=== PATIENT | male | born 1950 | race Hispanic/Latino ===

== ENCOUNTER 2018-05-02 16:11 | Inpatient (IN) | payer MEDICARE, BC ==
--- NOTE | 2018-05-02 17:14 | ED PDOC ---
Arrival/HPI - General Chief Complaint: High Blood Sugar Time Seen by Provider: 05/02/18 16:57 Historian: Patient - History of Present Illness Narrative History of Present Illness (Text): 05/02/18 16:59 67 y/o male, pmh including htn/hld/recently diagnosed dm, rt. below knee amputation form previous orthopedic surgery complication, nkda, c/o feeling fatigue/urinary frequency/thirsty/poor wound healing/dizziness for the past 2-3 weeks. Pt. stated that he saw Dr. Renner about couple days ago, started on the Xultophy about 2 days ago, told to check the fasting blood sugar at home, checked it around 12pm this afternoon before lunch and noted to be around 500s, had lunch around 1pm and currently around 300s, no night sweat, no visual changes, no change in vision, no numbness or tingling, no palpitation, no other medical or psychological complaints. Pt. stated that he had dizziness with fatigue but resolved today. Past Medical History - Provider Review Nursing Documentation Reviewed: Yes - Infectious Disease Hx of Infectious Diseases: None - Tetanus Immunization Tetanus Immunization: Up to Date - Cardiac Hx Cardiac Disorders: Yes Hx TN: Yes Hx Hypertension: Yes - Pulmonary Hx Respiratory Disorders: No - Neurological Hx Neurological Disorder: No - HEENT Hx HEENT Disorder: Yes Other/Comment: wears glasses - Renal Hx Renal Disorder: No - Endocrine/Metabolic Hx Endocrine Disorders: No - Hematological/Oncological Hx Blood Disorders: No Hx Blood Transfusions: No - Integumentary Hx Dermatological Disorder: No - Musculoskeletal/Rheumatological Hx Musculoskeletal Disorders: Yes Other/Comment: Right BKA - Gastrointestinal Hx Gastrointestinal Disorders: No - Genitourinary/Gynecological Hx Genitourinary Disorders: No - Psychiatric Hx Psychophysiologic Disorder: No Hx Substance Use: No - Surgical History Hx Cardiac Catheterization: Yes Hx Coronary Stent: Yes Hx Open Heart Surgery: Yes Hx Orthopedic Surgery: Yes (right BKA) - Anesthesia Hx Anesthesia Reactions: No Hx Malignant Hyperthermia: No - Suicidal Assessment Feels Threatened In Home Enviroment: No Family/Social History - Physician Review Nursing Documentation Reviewed: Yes Family/Social History: Unknown Family HX Smoking Status: Never Smoked Hx Alcohol Use: Yes (SOCIALLY) Frequency of alcohol use: Socially Hx Substance Use: No Allergies/Home Meds Allergies/Adverse Reactions: Allergies No Known Allergies Allergy (Verified 05/02/18 16:48) Home Medications: Home Meds Medication Instructions Recorded Confirmed amLODIPine [Norvasc] 10 mg PO DAILY 10/02/15 05/02/18 Atorvastatin Calcium 40 mg PO DAILY 01/19/18 05/02/18 Chlorthalidone [Hygroton] 25 mg PO DAILY 01/19/18 05/02/18 Lisinopril [Zestril] 20 mg PO DAILY 01/19/18 05/02/18 Metoprolol Tartrate [Lopressor] 50 mg PO BID 01/19/18 05/02/18 Review of Systems - Review of Systems Constitutional: Fatigue. absent: Fevers Eyes: absent: Vision Changes ENT: Other (+thirsty). absent: Hearing Changes, Sore Throat, Rhinorrhea Respiratory: absent: SOB, Cough Cardiovascular: absent: Chest Pain Gastrointestinal: absent: Abdominal Pain, Nausea, Vomiting Genitourinary Male: Frequency, Urinary Output Changes. absent: Dysuria Musculoskeletal: absent: Arthralgias, Back Pain Skin: absent: Rash, Pruritis Neurological: absent: Headache, Dizziness Psychiatric: absent: Anxiety, Depression, Suicidal Ideation Physical Exam Vital Signs Reviewed: Yes Vital Signs Temp Pulse Resp BP Pulse Ox 05/02/18 20:55 58 L 18 150/58 L 99 05/02/18 16:50 98.2 F 83 18 158/88 H 96 Temperature: Afebrile Blood Pressure: Hypertensive Pulse: Regular Respiratory Rate: Normal Appearance: Positive for: Well-Appearing, Non-Toxic, Comfortable Pain Distress: None Mental Status: Positive for: Alert and Oriented X 3 Finger Stick Blood Glucose: 324 - Systems Exam Head: Present: Atraumatic, Normocephalic Pupils: Present: PERRL Extroacular Muscles: Present: EOMI Conjunctiva: Present: Normal Ears: Present: NORMAL TM, Normal Canal. No: Erythema Mouth: Present: Moist Mucous Membranes Pharnyx: No: ERYTHEMA, EXUDATE, TONSILS ENLARGED Nose (External): Present: Atraumatic. No: Abrasion, Contusion, Laceration Nose (Internal): Present: Normal Inspection, No Active Bleeding. No: Rhinorrhea , Septal Hematoma, Epistaxis Neck: Present: Normal Range of Motion, Trachea Midline. No: MIDLINE TENDERNESS , Paraspinal Tenderness, Lymphadenopathy Respiratory/Chest: Present: Clear to Auscultation, Good Air Exchange. No: Respiratory Distress, Accessory Muscle Use Cardiovascular: Present: Regular Rate and Rhythm, Normal S1, S2. No: Murmurs Abdomen: No: Tenderness, Distention, Peritoneal Signs Back: Present: Normal Inspection Upper Extremity: Present: Normal Inspection. No: Cyanosis, Edema Lower Extremity: Present: Normal Inspection. No: Edema Neurological: Present: GCS=15, CN II-XII Intact, Speech Normal, Motor Func Grossly Intact, Gait Normal, Memory Normal, Other (no drift, normal finger to nose test, normal heel to suazo test. ) Skin: Present: Warm, Dry, Normal Color. No: Rashes Psychiatric: Present: Alert, Oriented x 3, Normal Insight, Normal Concentration Medical Decision Making ED Course and Treatment: 05/02/18 17:26 Differential: Uncontrolled DM vs. Hyperglycemia hyperosmolar state vs. Dehydration vs. UTI -Labs/vbg/ua -CT Head -IVF -Observe and reassess 05/02/18 20:24 -NIHSS is Zero -CT Head: Very small age indeterminate right cerebellar infarct. Probably nonacute although age indeterminate left thalamic lacunar infarct. Probably old although age indeterminate left basal ganglia/internal capsule lacunar infarct. Chronic small vessel white matter ischemia. No acute intracranial hemorrhage -VBG: PH 7.44, HCO3 30.6, CO2 45. Lactic acid 1.3 -Labs show no acute findings except K+3.2 (potassium chloride 40meq po ordered) , Glucose 318 (fluid ordered), BUN 27/creatine 1.5 (Dehydration, fluid ordered) -No anion gap, no signs of DKA. -UA show no UTI, +glucose noted, no ketone noted. -Pt. has no focal neurological deficits. -Pt. has poorly controlled new on set of DM, symptomatic, CT head show multiple age indeterminate ischemia changes, will need to be admitted for neurologist consult. Pt. is dehydrated with hypokalemia, will need fluid and electrolyte correction -Aspirin/swallow eval ordered -All labs/radiology results discussed with the patient and the family, all awared of the result and agreed on the plan of admission -I spoke to the HAT TRIMMER, covering for Dr. Renner, discussed about the case/labs/ radiology result discussed, request Dr. Madelyn Escamilla for routine consult. -I discussed with Dr. Duckworth about this case, agreed with the plan of care and admission plan, he will put in the admission order. 05/02/18 21:02 EKG reviewed, shows Sinus rhythm at 85 bpm with frequent premature ventricular complexes. Inferior infarct. - Lab Interpretations Lab Results: 05/02/18 18:07 05/02/18 18:07 Lab Results 05/02/18 18:07: pO2 48, VBG pH 7.44 H, VBG pCO2 45.0, VBG HCO3 30.6 H, VBG Total CO2 32.0 H, VBG O2 Sat (Calc) 89.2 H, VBG Base Excess 5.6 H, VBG Potassium 3.2 L, Sodium 137.0, Chloride 98.0, Glucose 331 H, Lactate 1.3, FiO2 21.0, Venous Blood Potassium 3.2 L 05/02/18 18:07: WBC 9.6, RBC 5.68, Hgb 16.9, Hct 44.9, MCV 79.0 L, MCH 29.8, MCHC 37.6 H, RDW 12.3, Plt Count 291, MPV 9.8, Gran % 61.0, Lymph % (Auto) 28.7 , [place] % (Auto) 8.0 H, Eos % (Auto) 2.0, Baso % (Auto) 0.3, Gran # 5.83, Lymph # (Auto) 2.7, [place] # (Auto) 0.8 H, Eos # (Auto) 0.2, Baso # (Auto) 0.03 05/02/18 18:07: Sodium 139, Chloride 95 L, Potassium 3.2 L, Carbon Dioxide 30, Anion Gap 17, BUN 27 H, Creatinine 1.5, Est GFR ( Amer) 56, Est GFR (Non- Af Amer) 46, Random Glucose 318 H* D, Calcium 9.9, Magnesium 2.3 H, Total Bilirubin 0.7, AST 27, ALT 25, Alkaline Phosphatase 123, Total Protein 7.3, Albumin 4.5, Globulin 2.8, Albumin/Globulin Ratio 1.6 05/02/18 18:07: Urine Color Yellow, Urine Appearance Sl cloudy, Urine pH 6.5, Ur Specific [place] 1.020, Urine Protein 30 H, Urine Glucose (UA) >=1000, Urine Ketones Negative, Urine Blood Negative, Urine Nitrate Negative, Urine Bilirubin Negative, Urine Urobilinogen 0.2, Ur Leukocyte Esterase Negative, Urine RBC 0 - 2, Urine WBC Negative, Ur Epithelial Cells 0 - 2 I have reviewed the lab results: Yes - RAD Interpretation Radiology Orders: 05/02/18 17:30 HEAD W/O CONTRAST [CT] Stat Brain: Volume loss. Chronic small vessel white matter ischemic change. No acute hemorrhage. Lacunar infarct involving the right internal capsule and caudate body. Very small right cerebellar infarct. Lacunar infarct in the medial left thalamus. Ventricles: No hydrocephalus. Bones/joints: No acute fracture. Soft tissues: Unremarkable. Sinuses: No acute sinusitis. Mastoid air cells: Unremarkable as visualized. Orbits: Borderline proptosis. IMPRESSION: Very small age indeterminate right cerebellar infarct. Probably nonacute although age indeterminate left thalamic lacunar infarct. Probably old although age indeterminate left basal ganglia/internal capsule lacunar infarct. Chronic small vessel white matter ischemia. No acute intracranial hemorrhage. Thank you for allowing us to participate in the care of your patient. Dictated and Authenticated by: Martell Dover MD 05/02/2018 7:45 PM Eastern Time ([place] & [place]) Vocational Placement Specialist: Radiologist - Medication Orders Current Medication Orders: Discontinued Medications Aspirin (Aspirin) 325 mg PO STAT STA Stop: 05/02/18 20:19 Sodium Chloride (Sodium Chloride 0.9%) 1,000 mls @ 200 mls/hr IV .Q5H JOSE MANUEL Last Admin: 05/02/18 18:21 Dose: 200 mls/hr eMAR Start Stop Document 05/02/18 18:21 HI (Rec: 05/02/18 18:21 VA [id number]) Intravenous Solution Start Date 05/02/18 Start Time 18:21 Sodium Chloride (Sodium Chloride 0.9%) 1,000 mls @ 999 mls/hr IV .Q1H1M STA Stop: 05/02/18 19:41 Last Admin: 05/02/18 19:23 Dose: 999 mls/hr eMAR Start Stop Document 05/02/18 19:23 HI (Rec: 05/02/18 19:24 VA [id number]) Intravenous Solution Start Date 05/02/18 Start Time 19:24 Insulin Human Regular (Humulin R) 8 units IV STAT STA Stop: 05/02/18 18:42 Last Admin: 05/02/18 19:24 Dose: Not Given Non-Admin Reason: Blood Sugar Parameter Comments: bs told to ed lexi morillo. lexi cancelled insulin MAR Blood Glucose Document 05/02/18 19:24 HI (Rec: 05/02/18 19:24 VA [id number]) Blood Glucose Finger Stick Blood Glucose (70-120) 276 Potassium Chloride (K-Dur 20 Meq Er Tab) 40 meq PO STAT STA Stop: 05/02/18 18:43 Last Admin: 05/02/18 19:23 Dose: 40 meq NIHSS Scale ([place]) Time Performed: 17:31 - How Severe is the Stoke Baseline Level of Consciousness: 0=Alert LOC to Questions: 0=Both comments correct LOC to commands: 0=Obeys both correctly Best Gaze: 0=Normal Visual: 0=No visual loss Facial: 0=Normal Motor Arm - Left: 0=No drift Motor Arm - Right: 0=No drift Motor Leg - Left: 0=No drift Motor Leg - Right: 0=No drift Limb Ataxia: 0=Absent Sensory: 0=Normal Best Language: 0=No aphasia Dysarthia: 0=Normal articulation Extinction & Inattention (Neglect): 0=Normal, no object Score: 0 Risk Level: No Stroke Risk - PA / HAT TRIMMER / Resident Statement MD/DO has reviewed & agrees with the documentation as recorded. Disposition/Present on Arrival - Present on Arrival Any Indicators Present on Arrival: No History of DVT/PE: No History of Uncontrolled Diabetes: No Urinary Catheter: No History of Decub. Ulcer: No History Surgical Site Infection Following: None - Disposition Have Diagnosis and Disposition been Completed?: Yes Diagnosis: Uncontrolled diabetes mellitus, Multi infarct state, Dehydration, Hypokalemia Disposition: HOSPITALIZED Disposition Time: 19:06 Patient Plan: Admission, Telemetry Patient Problems: Current Active Problems Problem Status Onset Uncontrolled diabetes mellitus Acute Multi infarct state Acute Dehydration Acute Hypokalemia Acute Condition: STABLE
[2018-05-02] MEDS ORDERED: Sodium Chloride 0.9% 1,000 ML IV SCH (17:30)
[2018-05-02 18:29] LABS: BASO # 0.03 K/mm3 (0.0-2.0); BASO % 0.3 % (0.0-3.0); EOS # 0.2 (0.0-0.7); GRAN # 5.83 (1.4-6.5); HEMOGLOBIN 16.9 g/dL (14.0-18.0); LYMPH # 2.7 (1.2-3.4); LYMPH % 28.7 % (22.0-35.0); MEAN CORPUSCULAR HEMOGLOBIN 29.8 pg (25.0-35.0); MEAN CORPUSCULAR HGB CONC 37.6 g/dl (31.0-37.0); MEAN PLATELET VOLUME 9.8 fl (7.0-11.0); MONO # 0.8 (0.1-0.6); PH,URINE 6.5 (4.7-8.0); RBC 5.68 10^6/uL (3.5-6.1); RED CELL DISTRIBUTION WIDTH 12.3 % (11.5-14.5); URINE BILIRUBIN NEGATIVE (NEGATIVE); URINE BLOOD NEGATIVE (NEGATIVE); URINE GLUCOSE (UA) >=1000 mg/dL (NEGATIVE); URINE LEUKOCYTE ESTERASE NEGATIVE Leu/uL (NEGATIVE); URINE PROTEIN 30 mg/dL (<30 mg/dL); URINE UROBILINOGEN 0.2 E.U./dL (<1 E.U./dL); WHITE BLOOD COUNT 9.6 10^3/ul (4.5-11.0)
[2018-05-02 18:31] LABS: URINE APPEARANCE SL CLOUDY (CLEAR); URINE COLOR YELLOW (YELLOW)
[2018-05-02 18:32] LABS: VENOUS BLOOD GAS BASE EXCESS 5.6 mmol/L (0.0-2.0); VENOUS BLOOD GAS PO2 48 mm/Hg (30-55); VENOUS BLOOD PH 7.44 (7.32-7.43)
[2018-05-02 18:33] LABS: URINE EPITHELIAL CELLS 0 - 2 /hpf (0-5); URINE RBC 0 - 2 /hpf (0-2); URINE WBC NEGATIVE /hpf (0-6)
[2018-05-02 18:39] LABS: ALB/GLOB RATIO 1.6 (1.1-1.8); ALBUMIN 4.5 g/dL (3.0-4.8); CALCIUM 9.9 mg/dL (8.4-10.5)
[2018-05-02] MEDS ORDERED: Sodium Chloride 0.9% 1,000 ML IV STA (18:41)
[2018-05-02] MEDS ORDERED: Insulin Regular 1 UNITS/0.01 ML ML IV STA (18:41)
[2018-05-02] MEDS ORDERED: Potassium Chloride 20 mEq ER Tab PO STA (18:42)
[2018-05-02] MEDS: Insulin Reg-MEDIUM-Coverage SC SCH (23:06)
[2018-05-02] MEDS: Sodium Chloride 0.9% 1,000 ML IV SCH (23:11)
[2018-05-03 00:04] VITALS: BMI 25.9
[2018-05-03] MEDS: Sodium Chloride 0.9% 1,000 ML IV SCH ×2 (07:45→10:49)
[2018-05-03] MEDS: Insulin Reg-MEDIUM-Coverage SC SCH ×4 (07:56→21:31)
--- NOTE | 2018-05-03 08:22 | CT ---
Date of service: 05/02/2018 PROCEDURE: CT HEAD WITHOUT CONTRAST. HISTORY: dizziness/fatigue for weeks COMPARISON: 03/31/2014 TECHNIQUE: Axial computed tomography images were obtained through the head/brain without intravenous contrast. Radiation dose: Total exam DLP = 1367 mGy-cm. This CT exam was performed using one or more of the following dose reduction techniques: Automated exposure control, adjustment of the mA and/or kV according to patient size, and/or use of iterative reconstruction technique. FINDINGS: HEMORRHAGE: No intracranial hemorrhage. BRAIN: No mass effect or edema. Chronic microvascular changes in the periventricular white matter and basal ganglia VENTRICLES: Unremarkable. No hydrocephalus. CALVARIUM: Unremarkable. PARANASAL SINUSES: Unremarkable as visualized. No significant inflammatory changes. MASTOID AIR CELLS: Unremarkable as visualized. No inflammatory changes. OTHER FINDINGS: The report concurs with the preliminary [facility] report IMPRESSION: No acute intracranial findings
--- NOTE | 2018-05-03 10:17 | MRI ---
Date of service: 05/03/2018 PROCEDURE: MRI BRAIN WITHOUT CONTRAST HISTORY: cva COMPARISON: None. TECHNIQUE: Multiplanar, multisequence MR images of the brain were obtained without intravenous contrast enhancement. FINDINGS: HEMORRHAGE: None DWI: No evidence of an acute or early subacute infarction. BRAIN PARENCHYMA: No mass effect or edema. Chronic microvascular changes are seen in the periventricular white matter VENTRICLES: Unremarkable. No hydrocephalus. CRANIUM: Unremarkable. ORBITS: Grossly unremarkable. PARANASAL SINUSES/MASTOIDS: Clear VASCULAR SYSTEM: Skull base flow voids intact. OTHER FINDINGS: None. IMPRESSION: No acute intracranial findings
[2018-05-03 12:01] LABS: ALB/GLOB RATIO 1.6 (1.1-1.8); ALBUMIN 3.7 g/dL (3.0-4.8); ALT/SGPT 25 U/L (7-56); AST/SGOT 14 U/L (17-59); BLOOD UREA NITROGEN 21 mg/dL (7-21); CALCIUM 9.1 mg/dL (8.4-10.5); GFR AFRICAN-AMERICAN > 60; GFR NON-AFRICAN AMERICAN > 60
[2018-05-03] MEDS ORDERED: Potassium Chloride 20 mEq ER Tab PO ONE (14:01)
--- NOTE | 2018-05-03 15:39 | CARD ---
APPROVED REPORT Date of service: 05/02/2018 EKG Measurement Heart [id number] <Conclusion> Sinus rhythm with frequent premature ventricular complexes Minimal voltage criteria for LVH, may be normal variant Possible Lateral infarct, age undetermined Inferior infarct, age undetermined Abnormal ECG
--- NOTE | 2018-05-03 17:50 | CON ---
Copied To: Raul Escamilla MD Attending MD: Raul Escamilla MD DATE: 05/03/2018 NEUROLOGY CONSULT CHIEF COMPLAINT: Fatigue, evaluated for CVA. HISTORY OF PRESENT ILLNESS: This is a 67-year-old man with history of type 2 diabetes mellitus, history of right below-knee amputation from previous orthopedic complication, hypertension, feeling fatigue, urinary frequency, increased thirst, poor wound healing, dizziness for the past few weeks, found to have blood sugars at his house in the 500s, came to the ER and found to have blood sugar above 300 and underwent an MRI of the brain to assess for any stroke-like symptoms. His MRI of the brain, which showed no acute intracranial abnormality, just some chronic microvascular changes bilaterally. Currently, no focal weakness. Lower extremity has a mild peripheral neuropathy from diabetes. His blood sugar today was 316. No acute events overnight. Currently, he is on aspirin 81 mg and Plavix 75 mg p.o. daily for stroke prevention. At this time, he is clinically stable. PAST MEDICAL HISTORY: As above. SOCIAL HISTORY: No illicit drug use, smoking, or EtOH abuse. ALLERGIES: NO KNOWN DRUG ALLERGIES. MEDICATIONS: Reviewed by nurse per reconciliation sheet. FAMILY HISTORY: Noncontributory. LABORATORY DATA: Sodium is 137, potassium 3.4, chloride of 99, carbon dioxide of 26. BUN of 21, creatinine of 1.2. Random glucose of 389. PHYSICAL EXAMINATION: VITAL SIGNS: Temperature of 98.6, pulse rate 79, blood pressure 150/89, respiratory rate of 17. GENERAL: The patient is sitting up in bed, in no acute distress. HEENT: Atraumatic, normocephalic. PERRLA. Extraocular muscles intact. NECK: Supple. No JVD, no adenopathy noted. LUNGS: Clear to auscultation. No adventitious sounds. HEART: S1, S2. Normal rate and rhythm. No murmurs, rubs, or gallops. ABDOMEN: Soft, nontender, and nondistended. Bowel sounds are present. EXTREMITIES: No clubbing. No cyanosis. Peripheral pulses 2+ felt bilaterally. NEUROLOGIC: The patient is alert and oriented to person, place, month, and year. Speech is fluent without any errors. Cranial nerves II through XII are intact. Motor exam: Moves all extremities equally. Toes are downgoing bilaterally. Sensory exam: Light touch, pinprick, proprioception, and vibration are intact. Has right BKA. Decreased vibration at the knees and elbows. Coordination: Atqeku-[id number] intact. No dysmetria noted. Gait is deferred for now. ASSESSMENT AND PLAN: This is a 67-year-old man with history of diabetes, hypertension, history of right below-knee amputation for orthopedic complication, who presented with symptoms of fatigue, increased thirst, urinary urgency, and generalized weakness, found to have elevated blood sugars. His symptoms were secondary to hyperglycemia, unlikely transient ischemic attack. MRI of the brain showed no acute intracranial abnormality. He is clinically stable. Recommended aspirin 81, Plavix 75, Lipitor 40 for stroke prevention. Get better control of his underlying sugars, keep blood sugars between 140 to 180 and diabetic diet is advised. He is clinically stable. Thank you for this consultation. Raul Escamilla MD
[2018-05-03 18:05] VITALS: O2SAT 97
--- NOTE | 2018-05-03 18:56 | HP ---
Copied To: Tommy Renner MD Attending MD: Tommy Renner MD HISTORY OF PRESENT ILLNESS: A 67-year-old white male with history of qdk-zahcbdc-lebepcwiv diabetes mellitus, stable for many years when he developed acute increase in his blood sugar, up into the 400-500 range. The patient was started on Xultophy at home; however, was unable to get his blood sugar under 500. He was having difficulty in using his pen, also difficulty in checking his blood sugars. Did not feel well, was a 90 plus degree, humid day. The patient came to the emergency room complaining of same symptoms. He was found to be slightly dehydrated with hyperkalemic. The patient's blood sugar was elevated. The patient was started on insulin and IV fluids and potassium replacement. The patient was seen this morning. He does have a history of an old BKA in the right leg many years ago. He recently had a worsening of his stump that has resolved. PHYSICAL EXAMINATION: GENERAL: Shows a well-developed, well-nourished white male, in no apparent distress. Speech is fluent. He is awake and alert x3. There are no focal lateralizing defects. He has got 5/5 strength in the upper and lower extremities. CHEST: Clear to auscultation. HEART: Regular sinus rhythm. EXTREMITIES: Without cyanosis, clubbing or edema. Carotids are without bruits. LABORATORY DATA: He did have a CT yesterday with possible old infarct. A repeat MRI will be done today. PLAN: To continue him on IV fluids and diabetic education and counseling and diabetic diet and to start insulin coverage and long-term insulin at bedtime. Tommy Renner MD
[2018-05-03] MEDS ORDERED: Insulin Detemir 100 units/ml Vial (Levemir) SC SCH (22:00)
[2018-05-03 23:25] VITALS: RESP 18
[2018-05-04] MEDS: Sodium Chloride 0.9% 1,000 ML IV SCH (05:41)
[2018-05-04 05:56] VITALS: TEMP 98.4
[2018-05-04] MEDS ORDERED: Potassium Chloride 20 mEq ER Tab PO SCH (08:00)
[2018-05-04] MEDS: Insulin Reg-MEDIUM-Coverage SC SCH (08:12)
[2018-05-04 09:05] LABS: BASO # 0.02 K/mm3 (0.0-2.0); BASO % 0.2 % (0.0-3.0); EOS # 0.4 (0.0-0.7); EOS % 3.9 % (1.5-5.0); GRAN # 5.5 (1.4-6.5); GRAN % 60.9 % (50.0-68.0); HEMOGLOBIN 15.5 g/dL (14.0-18.0); LYMPH # 2.4 (1.2-3.4); MEAN CELL VOLUME 79.8 fl (80.0-105.0); MEAN CORPUSCULAR HEMOGLOBIN 28.8 pg (25.0-35.0); MEAN PLATELET VOLUME 9.3 fl (7.0-11.0); MONO # 0.8 (0.1-0.6); RBC 5.39 10^6/uL (3.5-6.1); RED CELL DISTRIBUTION WIDTH 12.4 % (11.5-14.5)
[2018-05-04 09:13] VITALS: BP 142/95
[2018-05-04 09:18] LABS: ALB/GLOB RATIO 1.5 (1.1-1.8); ALBUMIN 3.7 g/dL (3.0-4.8); ALT/SGPT 26 U/L (7-56); AST/SGOT 19 U/L (17-59); BLOOD UREA NITROGEN 17 mg/dL (7-21); CALCIUM 8.7 mg/dL (8.4-10.5); GFR AFRICAN-AMERICAN > 60; GFR NON-AFRICAN AMERICAN > 60
[2018-05-04 10:10] VITALS: PULSE 77
--- NOTE | 2018-05-05 03:32 | DS ---
Copied To: Tommy Renner MD Attending MD: Tommy Renner MD HISTORY OF PRESENT ILLNESS: A 67-year-old white male admitted to the hospital with change of mental status, confusion, hyperglycemia. The patient had MRI and CT, both showed no evidence of acute infarcts. The patient's blood sugars have been well controlled with long-acting insulin and with short acting insulin. Diet has been addressed. The patient has been hydrated. The patient will be discharged home in improved condition. FINAL DISCHARGE DIAGNOSES: Insulin-dependent diabetes mellitus with hyperglycemia, dehydration and change in mental status. Tommy Renner MD
== END 2018-05-04 11:20 | disposition home or self-care (01) | DRG 639 ==
LOC: ED 16:11 → ERH 20:21 → 2RNO 21:43
PROVIDERS: ADMIT Internal Medicine; ATTEND Internal Medicine
DX: E11.65 Type 2 diabetes mellitus with hyperglycemia (principal); E86.0 Dehydration; E87.6 Hypokalemia; E11.42 Type 2 diabetes mellitus with diabetic polyneuropathy; E78.5 Hyperlipidemia, unspecified; I10 Essential (primary) hypertension; I25.2 Old myocardial infarction; Z89.511 Acquired absence of right leg below knee; Z95.5 Presence of coronary angioplasty implant and graft; Z79.84 Long term (current) use of oral hypoglycemic drugs